=== PATIENT | male | born 1975 | race Caucasian/White ===

== ENCOUNTER → 2016-10-14 | Outpatient (REF) ==
[~2016-10-14] MED LIST: PREDNISONE20 MG PO; PROVENTIL0.09 MG/A1 IH; RT ADVAIR 228 DISKUS IH; RT SPIRIVA18 MCG IH
== END ==
LOC: WSOH 09:31
DX: Z02.4 Encounter for examination for driving license (principal)

== ENCOUNTER 2019-07-25 17:51 | Emergency (ER) | payer OTHER ==
[~2019-07-25] VITALS: Ht 170.2 cm; Wt 82.7 kg
[2019-07-25 18:00] VITALS: BP 136/92; TEMP 98.5
[2019-07-25] MEDS ORDERED: NORCO 325 MG-51 TAB PO (18:52)
[2019-07-25 19:49] VITALS: PULSE 90
== END 2019-07-25 19:54 | disposition home or self-care (01) ==
LOC: COL.ER 17:51
DX: S93.401A Sprain of unspecified ligament of right ankle, initial encounter (principal); F17.210 Nicotine dependence, cigarettes, uncomplicated; E78.5 Hyperlipidemia, unspecified; J45.909 Unspecified asthma, uncomplicated; Z79.51 Long term (current) use of inhaled steroids; W17.2XXA Fall into hole, initial encounter; X50.1XXA Overexertion from prolonged static or awkward postures, initial encounter; Y92.59 Other trade areas as the place of occurrence of the external cause
CPT/HCPCS: Q4045

== ENCOUNTER 2019-10-30 22:28 | Emergency (ER) | payer BC ==
[~2019-10-30] VITALS: Ht 170.2 cm; Wt 84.1 kg
[~2019-10-30 22:28] MED LIST changes: +NORCO 325 MG-51 TAB PO
[2019-10-30] MEDS ORDERED: CRESTOR20 MG PO (22:50)
[2019-10-31 01:31] LABS: BASO # 0.1 (0.0-0.2); BASO % 0.6 % (0.0-2.0); EOS # 0.2 (0.0-0.7); EOS % 2.4 % (0-4.0); GRAN # 4.2 (1.4-6.5); GRAN % 52.1 % (42.2-75.2); HEMATOCRIT 46.9 % (42.0-52.0); HEMOGLOBIN 15.8 g/dl (13.5-18.0); LYMPH % 36.8 % (20.0-51.0); MEAN CELL VOLUME 90 fl (80.0-100.0); MEAN CORPUSCULAR HEMOGLOBIN 30 pg (27.0-31.0); MEAN CORPUSCULAR HGB CONC 34 g/dl (33.0-37.0); MEAN PLATELET VOLUME 9.4 fl (7.4-10.4); MONO # 0.6 (0.1-0.6); MONO % 7.9 % (1.7-9.3); PLATELET COUNT 286 K/mm3 (130-400); REDCELL DISTRIBUTION WIDTH-CV 12.3 % (11.5-14.5)
[2019-10-31 01:44] LABS: ALBUMIN 4.5 gm/dL (3.5-5.0); BILIRUBIN,TOTAL 0.4 mg/dL (0.0-1.0); CALCIUM 9.6 mg/dL (8.4-10.2); CREATININE, serum 0.89 (0.66-1.25); POTASSIUM 4.1 mmol/L (3.4-5.0); TOTAL PROTEIN 7.8 gm/dL (6.4-8.2)
[2019-10-31] MEDS ORDERED: VOLTAREN 75 DR75 MG PO (03:01)
[2019-10-31] MEDS ORDERED: ANTIVERT 25MG25 MG PO (03:01)
[2019-10-31] MEDS ORDERED: FLEXERIL 1010 MG/TAB PO (03:01)
[2019-10-31 03:15] VITALS: BP 128/94; PULSE 70; TEMP 97.8
== END 2019-10-31 03:15 | disposition home or self-care (01) ==
LOC: COL.ER 22:28
PROVIDERS: Emergency Medicine
DX: R42 Dizziness and giddiness (principal); S16.1XXA Strain of muscle, fascia and tendon at neck level, initial encounter; M47.812 Spondylosis without myelopathy or radiculopathy, cervical region; M50.21 Other cervical disc displacement, high cervical region; R51 Headache; E78.5 Hyperlipidemia, unspecified; F17.210 Nicotine dependence, cigarettes, uncomplicated; X58.XXXA Exposure to other specified factors, initial encounter
CPT/HCPCS: J1885; J2360; J2550; J3010; J7030

== ENCOUNTER 2023-09-18 20:18 | Inpatient (IN) | payer BC ==
[~2023-09-18] VITALS: Ht 170.2 cm; Wt 91.2 kg
[~2023-09-18 20:18] MED LIST changes: +ANTIVERT 25MG25 MG PO; +CRESTOR20 MG PO; +FLEXERIL 1010 MG/TAB PO; +VOLTAREN 75 DR75 MG PO
[2023-09-18] MEDS ORDERED: Acetaminophen 500 MG TAB PO ONE (20:30)
[2023-09-18] MEDS ORDERED: NS 1,000 ML IV ONE ×2 (20:30→21:30)
[2023-09-18] MEDS ORDERED: Ibuprofen 400 MG TAB PO ONE (20:30)
[2023-09-18 20:37] LABS: BASO % 0.4 % (0.0-2.0); EOS % 0.1 % (0.0-4.0); GRAN # 5.6 K/mm3 (1.4-6.5); GRAN % 84.5 % (42.2-75.2); HEMATOCRIT 42.9 % (42.0-52.0); LYMPH # 0.5 K/mm3 (1.2-3.4); LYMPH % 7.6 % (20.0-51.0); MEAN CELL VOLUME 88 fl (80.0-100.0); MEAN CORPUSCULAR HEMOGLOBIN 31 pg (27-31); MEAN CORPUSCULAR HGB CONC 35 g/dl (33.0-37.0); MONO # 0.5 K/mm3 (0.1-0.6); MONO % 7.3 % (1.7-9.3); PLATELET COUNT 238 K/mm3 (130-400); RED BLOOD COUNT 4.87 M/mm3 (4.20-5.60); REDCELL DISTRIBUTION WIDTH-CV 12.3 % (11.5-14.5)
[2023-09-18 20:57] LABS: BILIRUBIN,TOTAL 0.7 mg/dL (0.2-1.2); C-REACTIVE PROTEIN 6.32 mg/dL (0.00-0.50); CALCIUM 9.5 mg/dL (8.4-10.2); CREATININE, serum 1.26 mg/dL (0.72-1.25); POTASSIUM 4.2 mmol/L (3.5-4.5); TOTAL PROTEIN 7.3 gm/dL (6.2-8.1)
[2023-09-18] MEDS ORDERED: Albuterol 90 MCG/PUFF 8 GM MDI IH ONE (21:45)
[2023-09-18] MEDS ORDERED: TAMIFLU 75MG75 MG PO (21:50)
[2023-09-18] MEDS ORDERED: predniSONE 20 MG TAB PO ONE (22:15)
[2023-09-18] MEDS ORDERED: PREDNISONE20 MG PO (22:16)
[2023-09-18] MEDS ORDERED: Acetaminophen 325 MG TAB PO PRN (23:30)
[2023-09-18] MEDS ORDERED: Polyethylene Glycol 3350 17 GM PDS PO PRN (23:30)
[2023-09-18] MEDS ORDERED: Melatonin 3 MG TAB PO PRN (23:30)
[2023-09-18] MEDS ORDERED: Ondansetron 4 MG/2 ML VIAL IV PRN (23:30)
[2023-09-18] MEDS ORDERED: Albuterol 90 MCG/PUFF 8 GM MDI IH PRN (23:30)
[2023-09-18] MEDS ORDERED: Oseltamivir 75 MG CAP PO SCH (23:30)
[2023-09-19] VITALS (10 sets, daily range): BP systolic 101–125; BP diastolic 65–75; PULSE 95–118; TEMP 98.8–100.6
[2023-09-19] MEDS ORDERED: Nicotine 21 MG DAILY PATCH TD PRN (01:45)
[2023-09-19] MEDS ORDERED: guaiFENesin/Dextromethorphan Oral Soln 200-20 MG/10 ML UD PO PRN (02:00)
[2023-09-19] MEDS ORDERED: Sodium Chloride 0.65% Nasal Irrig 45 ML BOTTLE NS PRN (02:00)
[2023-09-19] MEDS ORDERED: Benzonatate 100 MG CAP PO PRN (02:00)
--- NOTE | 2023-09-19 05:46 | NUR ---
PT IN CONTACT/DROPLET ISOLATION FOR FLU A. PT ENCOURAGED TO TAKE DEEP BREATHS 10 TIMES AN HOUR WHILE AWAKE. REMAINS ON 1L OXYGEN. RESTING WITH EYES CLOSED. RESPIRATIONS EVEN & UNLABORED. NO SIGN OF DISTRESS AT THIS TIME.
[2023-09-19 06:35] LABS: BASO % 0.2 % (0.0-2.0); GRAN # 4.2 K/mm3 (1.4-6.5); GRAN % 88.6 % (42.2-75.2); HEMATOCRIT 39.2 % (42.0-52.0); HEMOGLOBIN 13.8 g/dl (13.5-18.0); LYMPH # 0.4 K/mm3 (1.2-3.4); LYMPH % 7.4 % (20.0-51.0); MEAN CELL VOLUME 88 fl (80.0-100.0); MEAN CORPUSCULAR HEMOGLOBIN 31 pg (27-31); MEAN CORPUSCULAR HGB CONC 35 g/dl (33.0-37.0); MEAN PLATELET VOLUME 9.3 fl (7.4-10.4); MONO # 0.2 K/mm3 (0.1-0.6); MONO % 3.4 % (1.7-9.3); PLATELET COUNT 221 K/mm3 (130-400); RED BLOOD COUNT 4.46 M/mm3 (4.20-5.60); REDCELL DISTRIBUTION WIDTH-CV 12.4 % (11.5-14.5)
[2023-09-19 06:54] LABS: CALCIUM 8.4 mg/dL (8.4-10.2); CREATININE, serum 0.94 mg/dL (0.72-1.25); POTASSIUM 4.2 mmol/L (3.5-4.5)
[2023-09-19] MEDS ORDERED: Heparin 5,000 UNITS/ML 1 ML VIAL SQ SCH (09:00)
--- NOTE | 2023-09-19 10:54 | NUR ---
Patient alert and oriented x4. Shift assessment complete this morning. Patient complains of malaise, temperature noted to be 99.7. PRN Tylenol administered. Complains of chills. Low appetite noted. Stable on 1L O2. Voices no concerns other than fever. Call light within reach.
--- NOTE | 2023-09-19 13:12 | NUR ---
Patient getting rest and sleeping, loud breathing noted while asleep. at bedside and voiced concern due to breathing sounding different. O2 stable on 1L still. Chicken noodle soup ordered for patient for lunch due to low appetite. Encouraged to drink fluids. PRN Tylenol administered for fever. Call light within reach.
[2023-09-19] MEDS ORDERED: Iohexol 350 - 100 ML VIAL IV ONE (15:21)
[2023-09-19] MEDS ORDERED: NS 500 ML IV PRN (16:30)
--- NOTE | 2023-09-19 18:32 | NUR ---
Patient complains of headache returning, PRN Tylenol administered. Patient resting in bed. Patient took a shower independent with family in the room, shower chair provided. Call light within reach, all needs met at this time.
[2023-09-20] VITALS (7 sets, daily range): BP systolic 111–125; BP diastolic 74–80; PULSE 94–99; TEMP 98.8–99.9
[2023-09-20 07:13] LABS: BASO % 0.2 % (0.0-2.0); GRAN # 2.5 K/mm3 (1.4-6.5); GRAN % 57.7 % (42.2-75.2); HEMATOCRIT 40.9 % (42.0-52.0); LYMPH # 1.4 K/mm3 (1.2-3.4); LYMPH % 31.3 % (20.0-51.0); MEAN CELL VOLUME 88 fl (80.0-100.0); MEAN CORPUSCULAR HEMOGLOBIN 30 pg (27-31); MEAN CORPUSCULAR HGB CONC 34 g/dl (33.0-37.0); MEAN PLATELET VOLUME 9.8 fl (7.4-10.4); MONO # 0.5 K/mm3 (0.1-0.6); MONO % 10.6 % (1.7-9.3); PLATELET COUNT 205 K/mm3 (130-400); RED BLOOD COUNT 4.63 M/mm3 (4.20-5.60); REDCELL DISTRIBUTION WIDTH-CV 12.5 % (11.5-14.5)
[2023-09-20 07:22] LABS: ALBUMIN 3.3 gm/dL (3.5-5.0); CALCIUM 8.3 mg/dL (8.4-10.2); CREATININE, serum 0.95 mg/dL (0.72-1.25); MAGNESIUM 2.1 mg/dL (1.6-2.6); PHOSPHOROUS 2.1 mg/dL (2.3-4.7); POTASSIUM 3.8 mmol/L (3.5-4.5)
--- NOTE | 2023-09-20 08:25 | NUR ---
Patient resting in bed with minimal needs. Significant other at bedside on the phone. Breakfast ordered, denies nausea and pain. Patient ready to be off of the O2, encouraged coughing and deep breathing and sitting up in the chair to help expand his lungs. Patient reports he will sit in chair when breakfast arrives. Patient disliked the heparin injection, but aware of the importance. Patient remains on droplet precautions. Will monitor
--- NOTE | 2023-09-20 12:40 | NUR ---
Patient resting in bed. He is reports a headache and requesting tylenol. Prn tyelnol given. He is going to order lunch. Patient taken off O2 and still sating at 95% on room air. Awaiting doctor to round
[2023-09-20] MEDS ORDERED: TAMIFLU 75MG75 MG PO (13:40)
[2023-09-20] MEDS ORDERED: RT Albuterol HFA MDI IH (13:40)
--- NOTE | 2023-09-20 13:48 | NUR ---
PATIENT DID NOT QUALIFY FOR HOME OXYGEN. SPO2 ON RA >94% DURING TESTING.
--- NOTE | 2023-09-20 15:00 | NUR ---
Patient ready for discharge. rounded. Patient O2 stable without O2. All discharge education reviewed with patient. He has follow up Chest xray orders and PCP appt scheduled. He ia aware. Patient ambulated out with all belonings. His son taking him home.
== END 2023-09-20 15:51 | disposition home or self-care (01) | DRG 871 ==
LOC: COL.ER 20:18 → SURG 23:30
PROVIDERS: Emergency Medicine; Internal Medicine; Physician Assistant; ADMIT Internal Medicine
DX: A41.89 Other specified sepsis (principal); J96.01 Acute respiratory failure with hypoxia; N17.9 Acute kidney failure, unspecified; F17.210 Nicotine dependence, cigarettes, uncomplicated; Z20.822 Contact with and (suspected) exposure to COVID-19; J45.20 Mild intermittent asthma, uncomplicated; E66.9 Obesity, unspecified; J20.8 Acute bronchitis due to other specified organisms; E86.9 Volume depletion, unspecified; R65.20 Severe sepsis without septic shock; J10.1 Influenza due to other identified influenza virus with other respiratory manifestations; Z91.018 Allergy to other foods; Z68.31 Body mass index [BMI] 31.0-31.9, adult
CPT/HCPCS: J1644; J7030; J7512; Q9967

== ENCOUNTER 2024-01-30 19:06 | Emergency (ER) | payer BC ==
[~2024-01-30] VITALS: Ht 170.2 cm; Wt 87.3 kg
[~2024-01-30 19:06] MED LIST changes: +RT Albuterol HFA MDI IH; +TAMIFLU 75MG75 MG PO
[2024-01-30 19:12] VITALS: TEMP 98.7
[2024-01-30] MEDS ORDERED: Cephalexin 500 MG CAP PO ONE (20:00)
[2024-01-30 20:17] LABS: BASO # 0.1 K/mm3 (0.0-0.2); BASO % 0.7 % (0.0-2.0); EOS # 0.3 K/mm3 (0.0-0.7); EOS % 3.8 % (0.0-4.0); GRAN # 3.6 K/mm3 (1.4-6.5); GRAN % 50.4 % (42.2-75.2); HEMATOCRIT 39.3 % (42.0-52.0); HEMOGLOBIN 13.7 g/dl (13.5-18.0); LYMPH # 2.7 K/mm3 (1.2-3.4); LYMPH % 38.2 % (20.0-51.0); MEAN CELL VOLUME 87 fl (80.0-100.0); MEAN CORPUSCULAR HEMOGLOBIN 30 pg (27-31); MEAN CORPUSCULAR HGB CONC 35 g/dl (33.0-37.0); MEAN PLATELET VOLUME 8.7 fl (7.4-10.4); MONO # 0.5 K/mm3 (0.1-0.6); MONO % 6.8 % (1.7-9.3); PLATELET COUNT 250 K/mm3 (130-400); RED BLOOD COUNT 4.52 M/mm3 (4.20-5.60); REDCELL DISTRIBUTION WIDTH-CV 12.2 % (11.5-14.5)
[2024-01-30 20:30] LABS: C-REACTIVE PROTEIN 2.1 mg/dL (0.00-0.50); CALCIUM 9.6 mg/dL (8.4-10.2); CREATININE, serum 0.99 mg/dL (0.72-1.25)
[2024-01-30] MEDS ORDERED: CEPHALEXIN500 M1 PO (20:42)
[2024-01-30 20:50] VITALS: BP 127/88; PULSE 90
== END 2024-01-30 20:50 | disposition home or self-care (01) ==
LOC: COL.ER 19:06
PROVIDERS: Nurse Practitioner Family
DX: L03.116 Cellulitis of left lower limb (principal); L03.115 Cellulitis of right lower limb; L25.9 Unspecified contact dermatitis, unspecified cause; M79.604 Pain in right leg; M79.605 Pain in left leg; E66.9 Obesity, unspecified; Z87.891 Personal history of nicotine dependence; Z68.30 Body mass index [BMI] 30.0-30.9, adult